=== PATIENT | female | born 1990 ===

== ENCOUNTER → 2023-12-05 | Outpatient (CLI) | payer MEDICAID | END | disposition home or self-care (01) | LOC: MRI 13:23 | PROVIDERS: ATTEND Obstetrics & Gynecology | DX: N83.292 Other ovarian cyst, left side (principal); N94.89 Other specified conditions associated with female genital organs and menstrual cycle; R10.2 Pelvic and perineal pain; M54.50 Low back pain, unspecified; R20.2 Paresthesia of skin; R32 Unspecified urinary incontinence; N85.4 Malposition of uterus; R59.0 Localized enlarged lymph nodes | CPT/HCPCS: 72195 ==